=== PATIENT | female | born 1965 | race Caucasian/White ===

== ENCOUNTER 2016-07-03 12:01 | Emergency (ER) | payer MEDICAID ==
[~2016-07-03 12:01] MED LIST: GLU5 PO; GLU500 PO; HUMALOG100 U/ML SC; HUMULIN; LANTI; LANTI SQ; LISINOPRIL10 MG PO; MACROBID100 MG PO; METFORMIN HYD1000 M1 PO; METOPROLOL TART25 M1 PO; NITROFURANTOIN100 M3 PO; NOVALIN IM/IV/SC; PRI20 PO; PRINIVIL20 MG PO; REG10I IV; REG10I PO; ZES10 PO; ZOC10 PO; ZOFRAN ODT4 MG SL
[2016-07-03 12:28] VITALS: BP 142/88
== END 2016-07-03 14:29 | disposition left against medical advice (07) ==
LOC: ED 12:01
DX: Z53.21 Procedure and treatment not carried out due to patient leaving prior to being seen by health care provider (principal)

== ENCOUNTER 2018-04-11 20:06 | Emergency (ER) | payer MEDICAID | END 2018-04-11 22:09 | disposition left against medical advice (07) | LOC: ED 20:06 | DX: Z53.21 Procedure and treatment not carried out due to patient leaving prior to being seen by health care provider (principal) ==

== ENCOUNTER 2018-06-19 16:37 | Emergency (ER) | payer MEDICAID ==
[~2018-06-19] VITALS: Ht 157.5 cm; Wt 70.3 kg
[2018-06-19 16:46] VITALS: Ht 157.5 cm; Wt 70.3 kg
[2018-06-19 17:10] LABS: BASOPHIL % 0.4 % (0-2); PLATELET COUNT 267 x10^3mcL (130-400); RED CELL DISTRIBUTION WIDTH 13.8 % (11.5-14.5)
[2018-06-19 17:28] LABS: CALCIUM 9.3 mg/dL (8.5-10.1); CHLORIDE SERUM 101 mmol/L (98-107); CREATININE SERUM 0.9 mg/dL (0.6-1.0); GFR1 > 60 mL/min; GLUCOSE SERUM 272 mg/dL (74-106); POTASSIUM SERUM 4.5 mmol/L (3.5-5.1); SODIUM SERUM 137 mmol/L (136-145)
[2018-06-19 17:33] LABS: ALBUMIN 3.5 g/dL (3.4-5.0); ALKALINE PHOSPHATASE 79 U/L (46-116); ALT/SGPT 65 U/L (14-59); AST/SGOT 23 U/L (15-37); BILIRUBIN TOTAL 0.22 mg/dL (0.20-1.00); TOTAL PROTEIN, SERUM 7.1 g/dL (6.4-8.2)
[2018-06-19 17:36] LABS: microscopic required? YES; urine erythrocyte TRACE (NEGATIVE)
[2018-06-19 18:17] VITALS: BP 150/84
== END 2018-06-19 18:17 | disposition home or self-care (01) ==
LOC: ED 16:37
PROVIDERS: Emergency Medicine
DX: N39.0 Urinary tract infection, site not specified (principal); E11.65 Type 2 diabetes mellitus with hyperglycemia; I10 Essential (primary) hypertension; Z90.89 Acquired absence of other organs; Z90.710 Acquired absence of both cervix and uterus; Z88.6 Allergy status to analgesic agent; Z98.890 Other specified postprocedural states
CPT/HCPCS: J2270; J2405; J7030